=== PATIENT | female | born 1990 | race Two or more races ===

== ENCOUNTER 2018-06-10 07:37 | Inpatient (IN) | payer OTHER ==
[~2018-06-10] VITALS: Ht 160 cm; Wt 72.0 kg
[2018-06-10 08:31] LABS: ANION GAP 6 mmol/L (5-15); CALCIUM 8.7 mg/dL (8.5-10.1); CHLORIDE 108 mmol/L (98-107); CREATININE 0.78 mg/dL (0.55-1.02)
[2018-06-10 08:33] LABS: MICROSCOPIC AUTO
[2018-06-10 08:40] LABS: BASOPHILS # (AUTO) 0.04 x10^3/uL (0-0.1); BASOPHILS % (AUTO) 1 % (0-1); EOSINOPHILS # (AUTO) 0.19 x10^3/uL (0-0.4); EOSINOPHILS % (AUTO) 3 % (1-7); LYMPHOCYTES # (AUTO) 2.58 x10^3/uL (1-3.4); LYMPHOCYTES % (AUTO) 39 % (22-44); MD NO; MEAN CORPUSCULAR HEMOGLOBIN 29.1 pg (27.0-34.8); MEAN CORPUSCULAR HGB CONC 33.8 g/dL (32.4-35.8); MEAN CORPUSCULAR VOLUME 86.1 fL (80-100); MEAN PLATELET VOLUME 9.4 fL (7.4-10.4); MONOCYTES # (AUTO) 0.32 x10^3/uL (0.2-0.8); MONOCYTES % (AUTO) 5 % (2-9); NEUTROPHILS # (AUTO) 3.52 x10^3/uL (1.8-6.8); NEUTROPHILS % (AUTO) 53 % (42-75); PLATELET COUNT 261 x10^3/uL (130-400); RED BLOOD COUNT 4.79 x10^6/uL (3.82-5.3); RED CELL DISTRIBUTION WIDTH 12.9 % (9.6-15.2)
[2018-06-10 08:40] LABS: CULTURE INDICATED? NO
[2018-06-10] MEDS ORDERED: SODIUM CHLORIDE 0.9% 1,000 ML IV ONE (09:05)
--- NOTE | 2018-06-10 09:26 | NUR ---
patient [place] from [place], SHRUTHI Tripp starting IV and bolus now, patient advised to remain NPO, she is safe in [facility].
[2018-06-10] MEDS ORDERED: SODIUM CHLORIDE FLUSH 10ML SYR IVF ONE (09:30)
[2018-06-10] MEDS ORDERED: SODIUM CHLORIDE 0.9% 1,000ML IVBOLUS ONE (09:30)
--- NOTE | 2018-06-10 10:03 | NUR ---
report to SHRUTHI Matamoros, SHRUTHI Tripp has started IV and NS Bolus, patient advised she is NPO, NADN, VSS on room air.
[2018-06-10] MEDS ORDERED: POTASSIUM CHLORIDE 20 MEQ in D5%-0.45% NACL 1,000 ML IV ONE (10:06)
[2018-06-10] MEDS ORDERED: HYDROmorphone 1 MG/ML, 1ML IVPush PRN (10:30)
[2018-06-10] MEDS ORDERED: SODIUM CHLORIDE FLUSH 10ML SYR IVF PRN (10:30)
[2018-06-10 10:48] VITALS: BP 129/84
[2018-06-10 14:24] VITALS: BP 113/77
[2018-06-10] MEDS: NITROFURANTOIN (MACROBID) 100 MG CAPSULE PO SCH ×2 (15:30→21:00)
[2018-06-10] MEDS: OXYcodone/APAP 5/325MG TABLET PO PRN (15:32)
[2018-06-10 16:06] LABS: ALANINE AMINOTRANSFERASE 23 U/L (12-78); ALBUMIN 3.7 g/dL (3.4-5.0)
[2018-06-10 16:08] LABS: ALKALINE PHOSPHATASE 70 U/L (45-117); BILIRUBIN,TOTAL 0.5 mg/dL (0.2-1.0); TOTAL PROTEIN 7.2 g/dL (6.4-8.2)
[2018-06-10 16:11] LABS: BILIRUBIN, DIRECT < 0.1 mg/dL (0.1-0.2); BILIRUBIN,INDIRECT 0.4 mg/dL (0.0-2.0)
[2018-06-10] MEDS ORDERED: METHOTREXATE IM ONE (18:00)
[2018-06-10] MEDS ORDERED: NITR100C56 PO (19:00)
[2018-06-10 20:00] VITALS: BP 114/76
[2018-06-11 01:30] VITALS: BP 105/68
[2018-06-11 06:44] VITALS: BP 106/71
[2018-06-11] MEDS: OXYcodone/APAP 5/325MG TABLET PO PRN (07:44)
[2018-06-11] MEDS: NITROFURANTOIN (MACROBID) 100 MG CAPSULE PO SCH (08:54)
== END 2018-06-11 12:30 | disposition home or self-care (01) | DRG 832 ==
LOC: ED 10:14 → EDIP 10:15 → 4NOR 10:37 → DCLOUNGE 06-11 12:20
PROVIDERS: ADMIT Obstetrics & Gynecology; ATTEND Obstetrics & Gynecology
DX: O00.101 Right tubal pregnancy without intrauterine pregnancy (principal); O24.911 Unspecified diabetes mellitus in pregnancy, first trimester; O23.41 Unspecified infection of urinary tract in pregnancy, first trimester
CPT/HCPCS: 36415; 76830; 80048; 80076; 81001; 82040; 82247; 82248; 84702; 84703; 85025; 86850; 86900; 99285; G0378; J9250